=== PATIENT | female | born 1955 | race Caucasian/White ===

== ENCOUNTER → 2019-12-13 | Emergency (ER) | payer OTHER ==
[~2019-12-13] VITALS: Ht 165.1 cm; Wt 59.9 kg
[~2019-12-13] MED LIST: LEVOXYL50 MCG PO; SYNTHROID75 MCG PO; ZETIA10 MG PO
== END | disposition home or self-care (01) ==
LOC: ER 14:27
DX: R51 Headache (principal); M79.2 Neuralgia and neuritis, unspecified

== ENCOUNTER 2022-07-14 17:19 | Emergency (ER) | payer OTHER ==
[~2022-07-14] VITALS: Ht 165.1 cm; Wt 61.2 kg
== END 2022-07-14 19:12 | disposition home or self-care (01) ==
LOC: ER 17:19
DX: L08.9 Local infection of the skin and subcutaneous tissue, unspecified (principal); E03.9 Hypothyroidism, unspecified; Z91.018 Allergy to other foods